=== PATIENT | female | born 1965 | race Caucasian/White ===

== ENCOUNTER 2018-11-06 21:30 | Emergency (ER) | payer SELFPAY ==
[2018-11-06 21:54] VITALS: BP 145/74
--- NOTE | 2018-11-06 21:57 | Event Note ---
ED Screening Note Date of service: 11/06/18 Time: 21:55 ED Screening Note: 53 y/o female comes in for needing a suction catheter. No other complaints. This initial assessment/diagnostic orders/clinical plan/treatment(s) is/are subject to change based on patients health status, clinical progression and re- assessment by fellow clinical providers in the ED. Further treatment and workup at subsequent clinical providers discretion. Patient/guardian urged not to elope from the ED as their condition may be serious if not clinically assessed and managed. Initial orders include:
--- NOTE | 2018-11-06 22:00 | Emergency Department Report ---
- HPI History of Present Illness: 53 y/o female comes in for needing a suction catheter. No other complaints. This initial assessment/diagnostic orders/clinical plan/treatment(s) is/are subject to change based on patients health status, clinical progression and re- assessment by fellow clinical providers in the ED. Further treatment and workup at subsequent clinical providers discretion. Patient/guardian urged not to elope from the ED as their condition may be serious if not clinically assessed and managed. Initial orders include: - Exam Vital Signs: Vital Signs 11/06/18 21:35 Temperature 97.7 F Pulse Rate 60 Respiratory 18 Rate Blood Pressure 145/74 O2 Sat by Pulse 95 Oximetry MSE screening note: Focused history and physical exam performed. Due to findings the following was ordered: <CESAR MERRILL - Last Filed: 11/06/18 21:58> - Exam Vital Signs: Vital Signs 11/06/18 21:35 Temperature 97.7 F Pulse Rate 60 Respiratory 18 Rate Blood Pressure 145/74 O2 Sat by Pulse 95 Oximetry MSE screening note: Focused history and physical exam performed. Due to findings the following was ordered: <NIKITA WEAVER - Last Filed: 11/17/18 08:47> Chief Complaint: Dyspnea/Respdistress Stated Complaint: MEDICAL EQUIPMENT NEEDED ED Medical Decision Making - Medical Decision Making Patient has been screened out and has been given follow-up with community resources This note has been generated by me, Dr. Nikita Weaver III, MD, the Insurance Processing Clerk for the emergency department. I have not seen this patient personally. <NIKITA WEAVER - Last Filed: 11/17/18 08:47> ED Disposition for MSE Is pt being admited?: No Does the pt Need Aspirin: No <CESAR MERRILL - Last Filed: 11/06/18 21:58> <NIKITA WEAVER - Last Filed: 11/17/18 08:47> Disposition: Z-07 MED SCREENING EXAM-LEFT Condition: Stable Referrals: JUVENAL HUGGINS MD [Primary Care Provider] - 3-5 Days
== END 2018-11-06 21:55 | disposition left against medical advice (07) ==
LOC: ED 21:30
DX: Z46.89 Encounter for fitting and adjustment of other specified devices (principal); Z53.21 Procedure and treatment not carried out due to patient leaving prior to being seen by health care provider